=== PATIENT | male | born 1950 | race Caucasian/White ===

== ENCOUNTER 2018-03-17 08:53 | Emergency (ER) | payer OTHER ==
[~2018-03-17] VITALS: Ht 182.9 cm; Wt 100.9 kg
[~2018-03-17 08:53] MED LIST: ADV100/50 INH; AMIODARONE HCL200 MG PO; APR10 PO; ASPIR 8181 MG PO; BET80 PO; CLARITHROMYCIN500 M1 PO; CLONIDINE HCL0.2 MG PO; DUONEB3 ML NEB; GLIPIZIDE10 MG PO; HYDROCHLOROTHIA25 MG PO; LEVOFLOXACIN500 M1 PO; LORAZEPAM0.5 MG PO; METFORMIN HCL1000 MG PO; METOPROLOL SUC100 M2 PO; OMEPRAZOLE DR20 M1 PO; TERAZOSIN HCL5 MG PO; TESTOSTERONE SHOT; VASOTEC20 MG PO; VERAPAMIL HCL120 M2 PO; XARELTO15 M1 PO; ZOC20 PO
[2018-03-17 08:58] VITALS: Ht 182.9 cm; Wt 100.9 kg
[2018-03-17 09:56] LABS: CALCIUM 8.5 mg/dL (8.5-10.1); CARBON DIOXIDE 25.8 mmol/L (21-32); CHLORIDE SERUM 97 mmol/L (98-107); CREATININE SERUM 0.7 mg/dL (0.7-1.3); GFR1 > 60 mL/min; GLUCOSE SERUM 131 mg/dL (74-106); POTASSIUM SERUM 4.4 mmol/L (3.5-5.1); SODIUM SERUM 129 mmol/L (136-145)
[2018-03-17 10:00] LABS: ALBUMIN 3.8 g/dL (3.4-5.0); ALKALINE PHOSPHATASE 53 U/L (46-116); ALT/SGPT 26 U/L (16-63); AST/SGOT 15 U/L (15-37); BILIRUBIN TOTAL 0.6 mg/dL (0.20-1.00); LIPASE 142 IU/L (73-393); TOTAL PROTEIN, SERUM 7.3 g/dL (6.4-8.2)
[2018-03-17 10:04] LABS: BASOPHIL % 0.6 % (0-2); PLATELET COUNT 164 x10^3mcL (130-400); RED CELL DISTRIBUTION WIDTH 13.3 % (11.5-14.5)
[2018-03-17 10:29] LABS: UA SPECIFIC GRAVITY <=1.005 (1.005-1.035); microscopic required? YES; urine erythrocyte NEGATIVE (NEGATIVE)
[2018-03-17 13:09] VITALS: BP 127/99
== END 2018-03-17 13:10 | disposition home or self-care (01) ==
LOC: ED 08:53
PROVIDERS: Emergency Medicine
DX: K44.9 Diaphragmatic hernia without obstruction or gangrene (principal); E87.1 Hypo-osmolality and hyponatremia; I10 Essential (primary) hypertension; E11.9 Type 2 diabetes mellitus without complications
CPT/HCPCS: 36415; J1885; Q0092